=== PATIENT | male | born 1970 | race Two or more races ===

== ENCOUNTER 2019-12-16 06:50 | Day surgery (SDC) | payer OTHER | END 2019-12-16 12:40 | disposition home or self-care (01) | LOC: AMB-ENDOS 06:50 → ADM 14:30 | DX: K62.89 Other specified diseases of anus and rectum (principal); K57.30 Diverticulosis of large intestine without perforation or abscess without bleeding; K64.8 Other hemorrhoids ==

== ENCOUNTER 2020-04-12 10:15 | Inpatient (IN) | payer OTHER ==
[~2020-04-12] VITALS: Ht 180.3 cm; Wt 99.8 kg
[2020-04-13] MEDS ORDERED: SYNTHROID175 MCG PO (08:49)
[2020-04-13] MEDS ORDERED: ZIAC 2.5-6.251 EACH PO (08:50)
[2020-04-18] MEDS ORDERED: INTESTINEX680 M1 PO (14:26)
[2020-04-18] MEDS ORDERED: HYOSCYAMINE0.125 M1 SL (14:26)
[2020-04-18] MEDS ORDERED: OXYC1TAB9 PO (14:26)
== END 2020-04-18 15:00 | disposition home or self-care (01) | DRG 331 ==
LOC: EDSTATUS 10:15 → ADM 10:15 → SURH 04-15 07:00 → O/R 04-15 08:48 → SURG 04-15 08:48 → SURH 04-15 10:15 → SURG 04-15 17:13
PROVIDERS: ADMIT Surgery; ATTEND Surgery
PROC: 0DBN4ZZ Excision of Sigmoid Colon, Percutaneous Endoscopic Approach (ICD-10-PCS; 2020-04-15)
PROC: 0DJD8ZZ Inspection of Lower Intestinal Tract, Via Natural or Artificial Opening Endoscopic (ICD-10-PCS; 2020-04-15)
PROC: 0DTP4ZZ Resection of Rectum, Percutaneous Endoscopic Approach (ICD-10-PCS; principal; 2020-04-15 07:00)
DX: K57.30 Diverticulosis of large intestine without perforation or abscess without bleeding (principal); E66.9 Obesity, unspecified; E03.9 Hypothyroidism, unspecified; I11.9 Hypertensive heart disease without heart failure

== ENCOUNTER 2020-06-06 11:33 | Emergency (ER) | payer OTHER ==
[~2020-06-06] VITALS: Ht 180.3 cm; Wt 99.8 kg
[~2020-06-06 11:33] MED LIST: HYOSCYAMINE0.125 M1 SL; INTESTINEX680 M1 PO; OXYC1TAB9 PO; SYNTHROID175 MCG PO; ZIAC 2.5-6.251 EACH PO
[2020-06-06] MEDS ORDERED: PEPCID AC20 MG PO (17:08)
[2020-06-06] MEDS ORDERED: DICY20TA PO (17:08)
[2020-06-06] MEDS ORDERED: PERCOCET 5-3251 EACH PO (17:08)
[2020-06-06] MEDS ORDERED: KETO10TA2 PO (17:08)
== END 2020-06-06 17:48 | disposition home or self-care (01) ==
LOC: ER 11:33
DX: R10.84 Generalized abdominal pain (principal)

== ENCOUNTER 2021-06-29 18:28 | Inpatient (IN) | payer OTHER ==
[~2021-06-29] VITALS: Ht 180.3 cm; Wt 95.3 kg
[~2021-06-29 18:28] MED LIST changes: +DICY20TA PO; +KETO10TA2 PO; +PEPCID AC20 MG PO; +PERCOCET 5-3251 EACH PO
[2021-06-29] MEDS ORDERED: LEVOTHYROXINE25 MCG PO (18:40)
[2021-06-29] MEDS ORDERED: BISOPROLOL-HCT1 EAC1 PO (18:40)
[2021-07-04] MEDS ORDERED: INTESTINEX680 M1 PO (13:03)
[2021-07-04] MEDS ORDERED: POLY119PG PO (13:03)
[2021-07-04] MEDS ORDERED: DICY20TA PO (13:04)
== END 2021-07-04 14:34 | disposition home or self-care (01) | DRG 390 ==
LOC: ER 18:28 → SURG 23:53
PROVIDERS: ADMIT Surgery; ATTEND Surgery
PROC: BW2110Z Computerized Tomography (CT Scan) of Abdomen and Pelvis using Low Osmolar Contrast, Unenhanced and Enhanced (ICD-10-PCS; principal; 2021-06-29)
DX: K56.699 Other intestinal obstruction unspecified as to partial versus complete obstruction (principal); G47.33 Obstructive sleep apnea (adult) (pediatric); I11.9 Hypertensive heart disease without heart failure; E03.8 Other specified hypothyroidism; E66.9 Obesity, unspecified; Z20.822 Contact with and (suspected) exposure to COVID-19

== ENCOUNTER 2024-10-09 11:22 | Emergency (ER) | payer OTHER ==
[~2024-10-09] VITALS: Ht 180.3 cm; Wt 90.7 kg
[~2024-10-09 11:22] MED LIST changes: +BISOPROLOL-HCT1 EAC1 PO; +LEVOTHYROXINE25 MCG PO; +POLY119PG PO
[2024-10-09 13:07] VITALS: BP 104/69; O2SAT 98
[2024-10-09] MEDS ORDERED: 0.9 % SODIUM CHLORIDE 1,000 ML IV STA (13:17)
[2024-10-09 14:10] LABS: HEMATOCRIT 53.2 % (39.0-48.0); MEAN CORPUSCULAR HGB CONC 34.9 g/dl (32.0-36.0); PLATELET COUNT 358 K/uL (150-450); RED BLOOD COUNT 6.19 M/uL (4.00-6.00); RED CELL DISTRIBUTION WIDTH 13.8 % (11.5-14.5)
[2024-10-09 14:11] LABS: HEMOGLOBIN 18.6 g/dL (13-16.00)
[2024-10-09 14:25] LABS: CALCIUM 9.2 mg/dL (8.5-10.1); CREATININE SERUM 1.38 mg/dL (0.70-1.30); GFR 54.11; POTASSIUM 3.93 mEq/L (3.5-5.1)
[2024-10-09 15:42] LABS: PH,URINE 5.5 (5.0-8.0); URINE APPEARANCE Clear; URINE BILIRRUBIN Negative (NEGATIVE); URINE BLOOD Small; URINE COLOR Dark Yellow; URINE GLUCOSE Negative (NEGATIVE); URINE KETONE Negative (NEGATIVE); URINE LEUKOCYTE Trace; URINE NITRATE Negative; URINE PROTEIN 30 (NEGATIVE); URINE UROBILINOGEN 0.2 E.U./dl
[2024-10-09 15:47] LABS: URINE BACTERIA 26.9 uL (0.0-1933); URINE CAST 12.96 uL (0.0-1.40); URINE EPITHELIAL CELLS 17.8 uL (0.0-38.8); URINE WBC 19.1 uL (0.0-23.2)
[2024-10-09] MEDS ORDERED: ONDANSETRON HCL4 MG PO (20:02)
[2024-10-09] MEDS ORDERED: PEPCID AC20 MG PO (20:02)
[2024-10-09] MEDS ORDERED: METRONIDAZOLE500 MG PO (20:02)
[2024-10-09] MEDS ORDERED: INTESTINEX680 M1 PO (20:02)
== END 2024-10-09 21:05 | disposition home or self-care (01) ==
LOC: ER 11:24
PROVIDERS: Emergency Medicine
DX: K52.89 Other specified noninfective gastroenteritis and colitis (principal)